=== PATIENT | female | born 1945 | race Caucasian/White ===

== ENCOUNTER 2021-01-07 16:30 | Inpatient (IN) ==
[2021-01-07] MEDS ORDERED: SODIUM CHLORIDE 0.9% 500 ML IV SCH (16:45)
--- NOTE | 2021-01-07 16:53 | Emergency Department Note ---
History of Present Illness General Chief complaint: Weakness Stated complaint: WEAKNESS, DIZZINESS, BRADYCARDIA, HYPOTENSIVE Time Seen by Provider: 01/07/21 16:36 Source: patient Mode of arrival: ambulatory Limitations: no limitations History of Present Illness Provider complaint: Weakness This is a 75-year-old female who presents to the ED with a chief complaint of generalized weakness and some nausea. She was discharged from [facility] yesterday. She was reportedly in there for hyperkalemia. The patient was seen by the home health nurse today and her heart rate was low in the 40s and her blood pressure was reportedly low as well. It was reportedly 62/33. She was brought here for evaluation. The patient states that she normally goes to [facility]. She decided to go to [place] on her last hospitalization at this time decided to come to [facility] for evaluation. She currently is not experiencing any nausea. She feels a little weak but otherwise denies any specific complaints at this time. Home Medications Medication Instructions Recorded Confirmed Type amlodipine 10 mg PO DAILY 01/07/21 01/07/21 History carvedilol 25 mg PO BIDM 01/07/21 01/07/21 History epoetin tomas-epbx [Retacrit] 10,000 unit SUBCUT .Q14 DAYS 01/07/21 01/07/21 History glimepiride 4 mg PO QAM 01/07/21 01/07/21 History sodium polystyrene sulfonate 15 g PO DAILY 01/07/21 01/07/21 History [Kayexalate] Allergies Allergy/AdvReac Type Severity Reaction Status Date / Time No Known Allergies Allergy Verified 01/07/21 17:29 Past Med/Surg History Medical History (Updated 01/07/21 @ 18:59 by Cortez Frias DO) Diabetes Hypertension Kidney disease, chronic, stage IV (GFR 15-29 ml/min) Social History Smoking Status: Never smoker Feels Safe at Home: Yes Review of Systems A total of 10 systems reviewed and were otherwise negative Physical Exam Vital Signs Vital Signs - 24 hr 01/07/21 16:35 01/07/21 16:40 01/07/21 16:47 Temperature 36.6 C Temperature Source Oral Pulse Rate 47 L 46 L 46 L Pulse Rate from SpO2 Sensor Respiratory Rate 23 13 21 Respiratory Effort / Characteristics Non-Labored Spontaneous Respiratory Depth Normal Blood Pressure 96/46 L 96/46 L Blood Pressure Mean 62 62 Blood Pressure Position Lying Pulse Oximetry 98 Oxygen Delivery Method Room Air Room Air Room Air Sepsis Recent Fever Within 48 Hours No Sepsis New/Unexplained Change in Mental Status N/A Sepsis Action Taken by Nursing No Action Required 01/07/21 16:50 01/07/21 17:00 01/07/21 17:10 Temperature Temperature Source Pulse Rate 45 L 49 L 45 L Pulse Rate from SpO2 Sensor Respiratory Rate 19 33 H 14 Respiratory Effort / Characteristics Respiratory Depth Blood Pressure Blood Pressure Mean Blood Pressure Position Pulse Oximetry Oxygen Delivery Method Room Air Room Air Room Air Sepsis Recent Fever Within 48 Hours Sepsis New/Unexplained Change in Mental Status Sepsis Action Taken by Nursing 01/07/21 17:20 01/07/21 17:30 01/07/21 17:40 Temperature Temperature Source Pulse Rate 44 L 46 L 46 L Pulse Rate from SpO2 Sensor Respiratory Rate 16 24 16 Respiratory Effort / Characteristics Respiratory Depth Blood Pressure Blood Pressure Mean Blood Pressure Position Pulse Oximetry Oxygen Delivery Method Room Air Room Air Room Air Sepsis Recent Fever Within 48 Hours Sepsis New/Unexplained Change in Mental Status Sepsis Action Taken by Nursing 01/07/21 17:50 01/07/21 18:00 01/07/21 18:10 Temperature Temperature Source Pulse Rate 44 L 45 L 45 L Pulse Rate from SpO2 Sensor 44 L Respiratory Rate 15 17 14 Respiratory Effort / Characteristics Respiratory Depth Blood Pressure Blood Pressure Mean Blood Pressure Position Pulse Oximetry 97 Oxygen Delivery Method Room Air Room Air Room Air Sepsis Recent Fever Within 48 Hours Sepsis New/Unexplained Change in Mental Status Sepsis Action Taken by Nursing 01/07/21 18:13 01/07/21 18:20 Temperature Temperature Source Pulse Rate 45 L 45 L Pulse Rate from SpO2 Sensor 45 L 45 L Respiratory Rate 13 15 Respiratory Effort / Characteristics Respiratory Depth Blood Pressure 128/58 L Blood Pressure Mean 81 Blood Pressure Position Pulse Oximetry 95 95 Oxygen Delivery Method Room Air Room Air Sepsis Recent Fever Within 48 Hours Sepsis New/Unexplained Change in Mental Status Sepsis Action Taken by Nursing CONSTITUTIONAL/VITAL SIGNS: Reviewed / noted above. GENERAL: Non-toxic in appearance. INTEGUMENTARY: Warm, dry, and [place] [employer]. HEAD: Normocephalic. EYES: without scleral icterus or trauma. ENT/OROPHARYNX: clear and moist. LYMPHADENOPATHY/NECK: Is supple without lymphadenopathy or meningismus. RESPIRATORY: Lungs clear and equal. CARDIOVASCULAR: Regular rate and rhythm. GI/ABDOMEN: Soft and nontender. No organomegaly or pulsatile mass. No rebound or guarding. Normal bowel sounds. EXTREMITIES: Warm and well perfused. BACK: No CVA tenderness. NEUROLOGICAL: Intact without focal deficits. PSYCHIATRIC: normal affect. MUSCULOSKELETAL: Normally developed with good muscle tone. TRIAGE NURSING DOCUMENTATION REVIEWED. Course Administered Medications Sodium Chloride (Nss 1000ml) 500 mls @ 999 mls/hr IV .Q31M ONE Stop: 01/07/21 19:06 Last Admin: 01/07/21 18:58 Dose: 999 mls/hr Documented by: Discontinued Medications Acetaminophen (Acetaminophen 500 Mg Tab) 500 mg PO NOW STA Stop: 01/07/21 18:44 Last Admin: 01/07/21 18:56 Dose: 500 mg Documented by: Sodium Chloride (Nss) 500 mls @ 999 mls/hr IV .Q31M BJORN Stop: 01/07/21 17:15 Last Infusion: 01/07/21 17:57 Dose: 0 mls/hr Documented by: [id number] Admin: 01/07/21 17:04 Dose: 999 mls/hr Documented by: [id number] Medical Decision Making Differential Diagnosis Differential includes acute coronary syndrome, myocardial infarction, CVA, TIA, anemia, infection, pneumonia, UTI, pyelonephritis, poor nutrition, dehydration, electrolyte disturbance,hypoglycemia. Medical Records Attestation: I reviewed the patient's medical records. Home Medications Current Medication List: was personally reviewed by me Laboratory Data Attestation: I reviewed the patient's lab results. Result diagrams: 01/07/21 17:25 01/07/21 17:25 Lab Results 01/07/21 01/07/21 01/07/21 Range/Units 17:25 17:25 17:25 WBC 5.42 (4.8-10.8) K/uL RBC 2.80 L (4.2-5.4) M/uL Hgb 8.3 L (12.0-16.0) g/dL Hct 26.4 L (37-47) % MCV 94.3 (80-100) fL MCH 29.6 (25-34) pg MCHC 31.4 L (32-36) g/dL RDW Std Deviation 53.9 H (36.4-46.3) fL RDW Coeff of Jaren 15.6 H (11.5-14.5) % Plt Count 138 (130-400) K/uL MPV 9.9 (7.4-10.4) fL Immature Gran % (Auto) 0.2 % Neut % (Auto) 63.8 % Lymph % (Auto) 27.7 % Young % (Auto) 7.2 % Eos % (Auto) 0.9 % Baso % (Auto) 0.2 % Neut # (Auto) 3.46 (1.4-6.5) K/uL Lymph # (Auto) 1.50 (1.2-3.4) K/uL Young # (Auto) 0.39 (0.11-0.59) K/uL Eos # (Auto) 0.05 (0-0.5) K/uL Baso # (Auto) 0.01 (0-0.2) K/uL Immature Gran # (Auto) 0.01 (0.00-0.02) K/uL PT 10.2 (9.0-12.0) Seconds INR 1.0 (0.9-1.1) Sodium 138 (136-145) mmol/L Potassium 4.6 (3.5-5.1) mmol/L Chloride 103 (98-107) mmol/L Carbon Dioxide 29 (21-32) mmol/L Anion Gap 6.0 (3-11) BUN 63 H (7-18) mg/dl Creatinine 3.59 H (0.6-1.2) mg/dl Est Cr Clr Drug Dosing 15.9 ml/min Est GFR ( Amer) 13.4 Est GFR (Non-Af Amer) 11.6 BUN/Creatinine Ratio 17.5 (10-20) Glucose 307 H* (70-99) mg/dl Calcium 8.7 (8.5-10.1) mg/dl Magnesium 2.6 H (1.8-2.4) mg/dl Total Bilirubin 0.7 (0.2-1) mg/dl AST 18 (15-37) U/L ALT 28 (12-78) U/L Alkaline Phosphatase 89 (45-117) U/L Total Creatine Kinase 44 (26-192) U/L Troponin I < 0.015 (0-0.045) ng/ml Total Protein 6.6 (6.4-8.2) gm/dl Albumin 3.0 L (3.4-5.0) gm/dl Globulin 3.6 (2.5-4.0) gm/dl Albumin/Globulin Ratio 0.8 L (0.9-2) Beta-Hydroxybutyric Acd 0.63 (0.2-2.81) mg/dl TSH 3.770 (0.300-4.500) uIu/ml Imaging Data Radiologist's Impression: XR chest 1V portable HISTORY: 75 years-old Female weakness acute weakness COMPARISON: None TECHNIQUE: Portable AP view of the chest FINDINGS: Cardiac silhouette is moderately enlarged. Coronary arterial stenting. Calcified plaque of the thoracic aorta. No pneumothorax, pleural effusion, airspace consolidation or overt pulmonary edema. The bones of the chest appear grossly intact. Degenerative changes of the shoulders and spine. IMPRESSION: Cardiomegaly without acute process. ECG Data Attestation: I personally reviewed and interpreted this ECG as follows: Indication: + weakness Rate (beats per minute): 44 Rhythm: + sinus bradycardia ECG Intervals/blocks: + First degree AV block ECG ST segments: no ST depression and no ST elevation ECG Findings: no PVCs MDM Narrative Patient presents with some generalized weakness nausea and also low blood pressure when checked by home health nurses. Her blood pressure was reportedly 62/33 with a heart rate of 45. She was sent here by ambulance. Review of the discharge summary suggest that she was discharged on Coreg and amlodipine for blood pressure control. Glimepiride was started for diabetes and Veltassa for hyperkalemia management. Her vital signs here did not show hypotension. She is bradycardic and a twelve-lead EKG shows a sinus bradycardia with a first-degree block of 44. No ischemic changes. The patient's blood work today shows a hemoglobin of 8.3. It was 9.85 days ago. Her BUN is 63 today and creatinine is 3.59. It was 49 and 3 2 days ago. Troponin was negative. Chest x-ray reveals cardiomegaly but no acute disease. Glucose is 307. Because the patient's overall symptoms as well as anemia and worsening kidney function, the patient will require further inpatient evaluation and care. Guaiac testing of the patient's stool was guaiac negative. The patient's niece did report that she was due for a Procrit shot today. She was given some IV fluids. Impression & Plan Generalized weakness, Anemia, Acute kidney injury superimposed on chronic kidney disease Discharge Plan Visit Data Chief Complaint: Weakness Stated Complaint: WEAKNESS, DIZZINESS, BRADYCARDIA, HYPOTENSIVE ED Provider: Cortez Frias Discharge Problem: Generalized weakness, Anemia, Acute kidney injury superimposed on chronic kid maxine disease Patient Disposition: Being Evaluated by Hospitalist Forms Stand Alone Forms: My [facility] Prescriptions Prescriptions: No Action carvedilol 25 mg Tablet 25 mg PO BIDM RF: 0 amlodipine 10 mg Tablet 10 mg PO DAILY RF: 0 glimepiride 4 mg Tablet 4 mg PO QAM RF: 0 sodium polystyrene sulfonate [Kayexalate] Powder 15 g PO DAILY RF: 0 Retacrit 10,000 unit/mL Solution 10,000 unit subcut .Q14 DAYS RF: 0 Referrals Referrals: PCP,NO [Primary Care Provider] -
--- NOTE | 2021-01-07 17:20 | XRay Report ---
XR chest 1V portable HISTORY: 75 years-old Female weakness acute weakness COMPARISON: None TECHNIQUE: Portable AP view of the chest FINDINGS: Cardiac silhouette is moderately enlarged. Coronary arterial stenting. Calcified plaque of the thorac ic aorta. No pneumothorax, pleural effusion, airspace consolidation or overt pulmonary edema. The bon es of the chest appear grossly intact. Degenerative changes of the shoulders and spine. IMPRESSION: Cardiomegaly without acute process. ACT 112: Negative or not required by law. The above report was generated using voice recognition software. It may contain grammatical, syntax o r spelling errors. Electronically signed by: Gamal Moon M.D. 01/07/2021 5:19 PM
[2021-01-07 17:37] LABS: Basophils # (auto) 0.01 K/uL (0-0.2); Basophils % (auto) 0.2 %; Eosinophils # (auto) 0.05 K/uL (0-0.5); Eosinophils % (auto) 0.9 %; Hematocrit (blood only) 26.4 % (37-47); Hemoglobin 8.3 g/dL (12.0-16.0); Immature Granulocytes # (auto) 0.01 K/uL (0.00-0.02); Immature Granulocytes % (auto) 0.2 %; Lymphocytes % (auto) 27.7 %; Mean Corpuscular Hemoglobin 29.6 pg (25-34); Mean Corpuscular Hgb Conc 31.4 g/dL (32-36); Mean Corpuscular Volume 94.3 fL (80-100); Mean Platelet Volume 9.9 fL (7.4-10.4); Monocytes # (auto) 0.39 K/uL (0.11-0.59); Monocytes % (auto) 7.2 %; Neutrophils # (auto) 3.46 K/uL (1.4-6.5); Neutrophils % (auto) 63.8 %; Platelet Count 138 K/uL (130-400); RDW Coefficient of Variation 15.6 % (11.5-14.5); RDW Standard Deviation 53.9 fL (36.4-46.3); White Blood Count 5.42 K/uL (4.8-10.8)
[2021-01-07 17:50] LABS: Prothrombin Time 10.2 Seconds (9.0-12.0)
[2021-01-07 18:08] LABS: Alanine Aminotransferase 28 U/L (12-78); Albumin Globulin Ratio 0.8 (0.9-2); Alkaline Phosphatase 89 U/L (45-117); Aspartate Aminotransferase 18 U/L (15-37); BUN Creatinine Ratio 17.5 (10-20); Bilirubin,Total 0.7 mg/dl (0.2-1); Blood Urea Nitrogen 63 mg/dl (7-18); Calcium 8.7 mg/dl (8.5-10.1); Carbon Dioxide 29 mmol/L (21-32); Chloride 103 mmol/L (98-107); Creatine Kinase 44 U/L (26-192); Creatinine Clr Calc Pharmacy 15.9 ml/min; Est GFR (African American) 13.4; Est GFR (Non-African American) 11.6; Globulin 3.6 gm/dl (2.5-4.0); Glucose 307 mg/dl (70-99); Magnesium 2.6 mg/dl (1.8-2.4); Potassium 4.6 mmol/L (3.5-5.1); Sodium 138 mmol/L (136-145); Total Protein 6.6 gm/dl (6.4-8.2); Troponin I < 0.015 ng/ml (0-0.045)
[2021-01-07] MEDS ORDERED: SODIUM CHLORIDE 0.9% 1000ML 500 ML IV ONE (18:36)
[2021-01-07 18:41] LABS: Beta-Hydroxybutyrate 0.63 mg/dl (0.2-2.81)
[2021-01-07] MEDS ORDERED: ACETAMINOPHEN 500 MG TAB PO STA (18:43)
[2021-01-07] MEDS ORDERED: INSULIN GLARGINE SOLOSTAR 100 UNITS/ML 3 ML PEN SC STA (19:54)
--- NOTE | 2021-01-07 20:23 | History & Physical Report ---
Date of Service January 07, 2021 Assessment & Plan (1) Hypotension: (2) Bradycardia: (3) Acute kidney injury superimposed on chronic kidney disease: This is a 75-year-old female who has significant past medical history of uncontrolled T2DM, CAD, HTN, HLD, hyperparathyroidism, CKD stage IV, PVD, GERD, exudative age-related macular degeneration, anemia of chronic disease, depression, thrombocytopenia, gait abnormality who presents to ED at the referral of home health nurse secondary to hypotension and bradycardia. Pt discharged [facility] from [facility] 12[facility]01 to a/c CKD, hypertension, hyperkalemia and halluciations. Med adjustments included d/c GALINDO and initiated on amlodipine and Coreg. Creatinine at discharge 3.0. Baseline creatinine ~ 2.4. HPI, PMSFH and physical exam obtained by myself. Please see Dr. Riddle Addendum for assessment and plan. (4) T2DM (type 2 diabetes mellitus): (5) CAD (coronary artery disease): (6) Hypertension: (7) Generalized weakness: (8) Anemia: (9) Plantar ulcer of right foot: (10) DVT prophylaxis: History of Present Illness Chief Complaint: Referred by home health due to hypotension and bradycardia. Primary Care Provider: Corry Vincent MD This is a 75-year-old female who has significant past medical history of uncontrolled T2DM, CAD, HTN, HLD, hyperparathyroidism, CKD stage IV, PVD, GERD, exudative age-related macular degeneration, anemia of chronic disease, depression, thrombocytopenia, gait abnormality who presents to ED at the referral of home health nurse secondary to hypotension and bradycardia. Of significance patient was recently hospitalized at [facility] secondary to acute on chronic CKD, hyperkalemia, auditory and visual hallucinations and hypertension. She was then transition to swing bed for PT OT and was discharged to home yesterday. She had been set up with [facility]. During her hospital stay she did have adjustments to blood pressure medications including discontinuation of lisinopril and the addition of amlodipine and Coreg. Her renal function on discharge was 3.0. At home today when being visited by home health nurse she was found to be lightheaded and dizzy with ambulation as long as weak. She was hypotensive and bradycardic and therefore referred to ED. Per ED physician BP at home was reportedly 62/33. In ED she had 1 L of IV fluid administered. Heart rates were in the mid 40s with sinus bradycardia and first-degree AV block. Blood pressure upon my evaluation was 115/44. Currently she feels much improved when is lying in bed. She denies any current lightheadedness, dizziness, fever, chills, sweats, chest pain, shortness of breath, nausea, vomiting, diarrhea, change in her bowel or urinary habits. Allergies Allergy/AdvReac Type Severity Reaction Status Date / Time No Known Allergies Allergy Verified 01/07/21 17:29 Home Medications Medication Instructions Recorded Confirmed Type amlodipine 10 mg PO DAILY 01/07/21 01/07/21 History aspirin [Aspir-81] 81 mg PO DAILY 01/07/21 01/07/21 History atorvastatin 80 mg PO DAILY 01/07/21 01/07/21 History brimonidine-dorzolamide (PF) 1 drp OPHTHALMIC (EYE) BID 01/07/21 01/07/21 History carvedilol 25 mg PO BIDM 01/07/21 01/07/21 History cholecalciferol (vitamin D3) 25 mcg PO DAILY 01/07/21 01/07/21 History citalopram 20 mg PO DAILY 01/07/21 01/07/21 History clopidogrel 75 mg PO DAILY 01/07/21 01/07/21 History epoetin tomas-epbx [Retacrit] 10,000 unit SUBCUT .Q14 DAYS 01/07/21 01/07/21 History famotidine 20 mg PO HS 01/07/21 01/07/21 History ferrous sulfate [FeroSul] 325 mg PO DAILY@1200 01/07/21 01/07/21 History folic acid 1 mg PO DAILY 01/07/21 01/07/21 History furosemide 40 mg PO DAILY 01/07/21 01/07/21 History glimepiride 4 mg PO QAM 01/07/21 01/07/21 History polyethylene glycol 3350 17 g PO DAILY 01/07/21 01/07/21 History prednisolone acetate 1 drp OPL BID 01/07/21 01/07/21 History sodium polystyrene sulfonate 15 g PO DAILY 01/07/21 01/07/21 History [Kayexalate] travoprost [Travatan Z] 1 drp OPR PM 01/07/21 01/07/21 History Past Med/Surg History Medical History CAD (coronary artery disease) Depression 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 GERD (gastroesophageal reflux disease) HLD (hyperlipidemia) Hyperparathyroidism Hypertension Kidney disease, chronic, stage IV (GFR 15-29 ml/min) PVD (peripheral vascular disease) T2DM (type 2 diabetes mellitus) Surgical History History of cataract extraction History of tonsillectomy History of total hysterectomy with bilateral salpingo-oophorectomy (BSO) Family History Mother Breast cancer Sister Cancer Father Diabetes Social History Smoking Status: Never smoker Hx Alcohol Use: No Hx Substance Use: No Preferred Language: Cuban marital status: / Feels Safe at Home: Yes Review of Systems Review of Systems: All systems reviewed & are unremarkable except as noted in HPI & below Physical Exam Physical Exam: Constitutional: WD/WN, chronically ill-appearing female, pale, vitals as above, NAD, lying in bed, pleasant, conversing easily Head: Normocephalic, Atraumatic Eyes: PERRL, conjunctivae normal, anicteric sclerae ENMT: external ear and nose normal, oropharynx normal Neck: trachea midline, no thyromegaly normal visual inspection Respiratory: normal respiratory effort, lungs clear to auscultation, no wheeze, rales, rhonchi. Normal insp/exp effort, no accessory muscle use Cardiovascular: Bradycardic rate, regular rhythm, no murmur, bilateral venous stasis changes, no edema Vessels: no JVD or carotid bruit Chest: normal inspection of chest Abdomen: normal bowel sounds, soft, nontender, no hepatosplenomegaly Musculoskeletal: no cyanosis or clubbing, extremities motor strength 5/5 Skin: no rashes, warm and dry normal turgor, plantar ulcer to base of right great toe with with thickened crust, no surrounding erythema Neurologic: PERRL, EOMI, accommodation nl, no face palsy, no dysarthria CN's II-XI intact bilaterally and moves all extremities Psychiatric: A+Ox3, euthymic affect Lymphatic: no cervical or axillary lymphadenopathy : deferred Results & Data Results & Data ([facility]) Vital Signs (Past 12 Hours) Vital Signs Temp Pulse Resp BP Pulse Ox 01/07/21 19:00 48 L 19 99 01/07/21 18:50 44 L 13 97 01/07/21 18:40 46 L 14 99 01/07/21 18:30 47 L 20 118/60 99 01/07/21 18:20 45 L 15 95 01/07/21 18:13 45 L 13 128/58 L 95 01/07/21 18:10 45 L 14 97 01/07/21 18:00 45 L 17 01/07/21 17:50 44 L 15 01/07/21 17:40 46 L 16 01/07/21 17:30 46 L 24 01/07/21 17:20 44 L 16 01/07/21 17:10 45 L 14 01/07/21 17:00 49 L 33 H 01/07/21 16:50 45 L 19 01/07/21 16:47 46 L 21 01/07/21 16:40 36.6 C 46 L 13 96/46 L 98 01/07/21 16:35 47 L 23 96/46 L Diagnostic Findings CXR: IMPRESSION: Cardiomegaly without acute process. Medications Administered Discontinued Medications Acetaminophen (Acetaminophen 500 Mg Tab) 500 mg PO NOW STA Stop: 01/07/21 18:44 Last Admin: 01/07/21 18:56 Dose: 500 mg Documented by: [id number] Sodium Chloride (Nss) 500 mls @ 999 mls/hr IV .Q31M BJORN Stop: 01/07/21 17:15 Last Infusion: 01/07/21 17:57 Dose: 0 mls/hr Documented by: [id number] Admin: 01/07/21 17:04 Dose: 999 mls/hr Documented by: [id number] Sodium Chloride (Nss 1000ml) 500 mls @ 999 mls/hr IV .Q31M ONE Stop: 01/07/21 19:06 Last Infusion: 01/07/21 19:43 Dose: 0 mls/hr Documented by: [id number] Admin: 01/07/21 18:58 Dose: 999 mls/hr Documented by: [id number] ECG Rate (beats per minute): 44 Rhythm: sinus bradycardia Findings: + 1st degree AV block COVID-19 Results Results COVID-19 Adm Lab Results: RBC 2.80 M/uL (4.2-5.4) L 01/07/21 WBC 5.42 K/uL (4.8-10.8) 01/07/21 Hgb 8.3 g/dL (12.0-16.0) L 01/07/21 Hct 26.4 % (37-47) L 01/07/21 Plt Count 138 K/uL (130-400) 01/07/21 Neutrophils (%) (Auto) 63.8 % 01/07/21 Lymphocytes (%) (Auto) 27.7 % 01/07/21 Monocytes # (Auto) 0.39 K/uL (0.11-0.59) 01/07/21 Eosinophils # (Auto) 0.05 K/uL (0-0.5) 01/07/21 Immature Granulocyte % (Auto) 0.2 % 01/07/21 Neutrophils # (Auto) 3.46 K/uL (1.4-6.5) 01/07/21 Lymphocytes # (Auto) 1.50 K/uL (1.2-3.4) 01/07/21 Monocytes # (Auto) 0.39 K/uL (0.11-0.59) 01/07/21 Eosinophils # (Auto) 0.05 K/uL (0-0.5) 01/07/21 Basophils # (Auto) 0.01 K/uL (0-0.2) 01/07/21 Immature Granulocyte # (Auto) 0.01 K/uL (0.00-0.02) 01/07/21 Na 138 mmol/L (136-145) 01/07/21 K 4.6 mmol/L (3.5-5.1) 01/07/21 Cl 103 mmol/L (98-107) 01/07/21 CO2 29 mmol/L (21-32) 01/07/21 Anion Gap 6.0 (3-11) 01/07/21 BUN 63 mg/dl (7-18) H 01/07/21 Creatinine 3.59 mg/dl (0.6-1.2) H 01/07/21 BUN/Creatinine Ratio 17.5 (10-20) 01/07/21 Glucose Level 307 mg/dl (70-99) H* 01/07/21 Ca 8.7 mg/dl (8.5-10.1) 01/07/21 Total Bilirubin 0.7 mg/dl (0.2-1) 01/07/21 AST/SGOT 18 U/L (15-37) 01/07/21 ALT/SGPT 28 U/L (12-78) 01/07/21 Alkaline Phosphatase 89 U/L (45-117) 01/07/21 Total Protein 6.6 gm/dl (6.4-8.2) 01/07/21 Albumin 3.0 gm/dl (3.4-5.0) L 01/07/21 Globulin 3.6 gm/dl (2.5-4.0) 01/07/21 Albumin/Globulin Ratio 0.8 (0.9-2) L 01/07/21 Total CK 44 U/L (26-192) 01/07/21 Troponin I < 0.015 ng/ml (0-0.045) 01/07/21 INR 1.0 (0.9-1.1) 01/07/21 SARS-CoV-2, RNA, NAAT NEGATIVE (NEGATIVE) 01/07/21 Chest X-Ray 01/07/21 Code Status & VTE Plan Code Status Full Code VTE Prophylaxis Plan VTE Prophylaxis will be ordered: Yes
[2021-01-07] MEDS ORDERED: SODIUM CHLORIDE 0.9% 1000ML 1,000 ML IV ONE (20:48)
[2021-01-07] MEDS ORDERED: CARBOHYDRATES FOR HYPOGLYCEMIA PO PRN (23:20)
[2021-01-07] MEDS ORDERED: PROMETHAZINE HCL 12.5 MG in SODIUM CHLORIDE 0.9% 50 ML IV PRN (23:20)
[2021-01-07] MEDS ORDERED: DEXTROSE 50% 50 ML SYRINGE IV PRN (23:20)
[2021-01-07] MEDS ORDERED: ACETAMINOPHEN 325 MG TAB PO PRN (23:20)
[2021-01-07] MEDS ORDERED: ATROPINE SULFATE 0.1 MG/ML 5ML SYR IV PRN (23:20)
[2021-01-07] MEDS ORDERED: GLUCAGON FOR INJ 1 MG VIAL SQ PRN (23:20)
[2021-01-07] MEDS ORDERED: GLUCOSE 40% GEL 15 GM TUBE PO PRN (23:20)
[2021-01-07] MEDS ORDERED: traMADol HCL 50 MG TABLET PO PRN (23:20)
[2021-01-07] MEDS ORDERED: GLUCOSE 10 TABS/TUBE PO PRN (23:20)
[2021-01-07] MEDS: TRAVOPROST Z 0.004% OPH SOLN 2.5 ML BTL OPR SCH (23:53)
[2021-01-07] MEDS: FAMOTIDINE 20 MG TAB PO SCH (23:54)
[2021-01-07] MEDS: prednisoLONE acetate 1% OP SUSP 5 ML BTL OP SCH (23:54)
[2021-01-07] MEDS: INSULIN ASPART 100 UNITS/ML 3 ML PEN SC SCH (23:55)
[2021-01-08 00:31] LABS: BUN Creatinine Ratio 18.8 (10-20); Calcium 8.4 mg/dl (8.5-10.1); Creatinine Clr Calc Pharmacy 16.2 ml/min; Est GFR (African American) 13.9; Potassium 4.1 mmol/L (3.5-5.1)
[2021-01-08 04:58] LABS: Appearance Urine Clear (Clear); Bilirubin Urine Negative (Negative); Blood Urine Negative (Negative); Color Urine Yellow; Glucose Urine UA Negative (Negative); Ketones Urine Negative (Negative); Leukocyte Esterase Urine Negative (Negative); Nitrite Urine Negative (Negative); Protein Urine Negative (Negative); Specific Gravity Urine 1.018 (1.000-1.030); Urobilinogen Urine Negative (Negative)
[2021-01-08 06:32] LABS: Basophils # (auto) 0.01 K/uL (0-0.2); Basophils % (auto) 0.2 %; Eosinophils # (auto) 0.07 K/uL (0-0.5); Eosinophils % (auto) 1.3 %; Hematocrit (blood only) 25.6 % (37-47); Hemoglobin 8.1 g/dL (12.0-16.0); Lymphocytes # (auto) 1.39 K/uL (1.2-3.4); Lymphocytes % (auto) 25.7 %; Mean Corpuscular Hemoglobin 29.8 pg (25-34); Mean Corpuscular Hgb Conc 31.6 g/dL (32-36); Mean Corpuscular Volume 94.1 fL (80-100); Mean Platelet Volume 10.1 fL (7.4-10.4); Monocytes # (auto) 0.47 K/uL (0.11-0.59); Monocytes % (auto) 8.7 %; Neutrophils # (auto) 3.47 K/uL (1.4-6.5); Neutrophils % (auto) 64.1 %; Platelet Count 114 K/uL (130-400); RDW Coefficient of Variation 15.6 % (11.5-14.5); Red Blood Count 2.72 M/uL (4.2-5.4); White Blood Count 5.41 K/uL (4.8-10.8)
[2021-01-08 06:58] LABS: BUN Creatinine Ratio 18.7 (10-20); Calcium 8.6 mg/dl (8.5-10.1); Creatinine Clr Calc Pharmacy 16.1 ml/min; Est GFR (African American) 13.7; Est GFR (Non-African American) 11.9; Potassium 4.3 mmol/L (3.5-5.1)
[2021-01-08] MEDS: TRAVOPROST Z 0.004% OPH SOLN 2.5 ML BTL OPR SCH (07:39)
[2021-01-08] MEDS: CLOPIDOGREL BISULFATE 75 MG TAB PO SCH (07:40)
[2021-01-08] MEDS: CITALOPRAM 20 MG TAB PO SCH (07:40)
[2021-01-08] MEDS: FOLIC ACID 1 MG TAB PO SCH (07:40)
[2021-01-08] MEDS: ATORVASTATIN 40 MG TAB PO SCH (07:41)
[2021-01-08] MEDS: FERROUS SULFATE 325 MG TAB PO SCH (07:41)
[2021-01-08] MEDS: ASPIRIN 81 MG ECTAB PO SCH (07:42)
[2021-01-08] MEDS: prednisoLONE acetate 1% OP SUSP 5 ML BTL OP SCH ×2 (07:42→20:39)
[2021-01-08] MEDS: INSULIN ASPART 100 UNITS/ML 3 ML PEN SC SCH ×4 (07:59→20:38)
--- NOTE | 2021-01-08 08:09 | Nephrology Consultation ---
Date of Consultation January 08, 2021 Assessment & Plan (1) Acute kidney injury superimposed on chronic kidney disease: presenting creatinine 01/07 3.6, up from her baseline of 2. kayexalate was continued on presentation. suspect ischemic atn from lower bp/bradycardia. >>low threshold to evaluate for sleep apnea/ low threshold for abg given tendency to dose off >> pt w/ ongong MS issues past several weeks -- ?dementia?delirium; ? if othe rwork up needed -stopped kayexalate -ordered low K diet for now -daily bmp Present on Admission?: Yes (2) Bradycardia: ongoing; hypotension improving though Present on Admission?: Yes (3) Anemia: follows w/ anemia clinic as OP; hgb runnign low 8's >> trend daily cbc, monitor for bleeding -will check iron stores fo fitz Present on Admission?: Yes (4) Hypertension: SBP high now>> stopped NS; some lability on presentation Present on Admission?: Yes History of Present Illness Reason for Consultation: acute on chronic renal failure Requesting Physician: Dr Li Attending Physician: Jillian Fofana, DO History of Present Illness 75 y/o F whom I'm asked to see for MARGARETH on CKD after she was admitted yesterday for hypotension attributed to bradycardia after she was recently started on coreg. PMH includes CKD 4 w/ a baseline creatinine of about 2 in early 2020, CAD s/p stent, class 3 obesity, DM longstanding w/ poor control (last A1c 9.5%) and retinopathy, PVD, R toe ulcer and recent osteomyelitis, by report progressive dementia, recurrent UTI, chronic thrombocytopenia. Many active health issues recently: admitted to [facility] for encephalopathy attributed to HTN and hyperkalemia w/ worsening renal function; also in process of transitioning to assisted living in [facility]. Her HR has been in the 40s since admission; sbp was in 90s on presentation but improved to 120-130s this am and 170s by early afternoon. Her presenting creatinine was 3.6, down to 3.5 this am. ROS is limited by fatigue/ MS-- she denies pain or sob or edema. Allergies Allergy/AdvReac Type Severity Reaction Status Date / Time No Known Allergies Allergy Verified 01/07/21 17:29 Home Medications Medication Instructions Recorded Confirmed Type amlodipine 10 mg PO DAILY 01/07/21 01/07/21 History aspirin [Aspir-81] 81 mg PO DAILY 01/07/21 01/07/21 History atorvastatin 80 mg PO DAILY 01/07/21 01/07/21 History brimonidine-dorzolamide (PF) 1 drp OPHTHALMIC (EYE) BID 01/07/21 01/07/21 Histor y carvedilol 25 mg PO BIDM 01/07/21 01/07/21 History cholecalciferol (vitamin D3) 25 mcg PO DAILY 01/07/21 01/07/21 History citalopram 20 mg PO DAILY 01/07/21 01/07/21 History clopidogrel 75 mg PO DAILY 01/07/21 01/07/21 History epoetin tomas-epbx [Retacrit] 10,000 unit SUBCUT .Q14 DAYS 01/07/21 01/07/21 History famotidine 20 mg PO HS 01/07/21 01/07/21 History ferrous sulfate [FeroSul] 325 mg PO DAILY@1200 01/07/21 01/07/21 History folic acid 1 mg PO DAILY 01/07/21 01/07/21 History furosemide 40 mg PO DAILY 01/07/21 01/07/21 History glimepiride 4 mg PO QAM 01/07/21 01/07/21 History polyethylene glycol 3350 17 g PO DAILY 01/07/21 01/07/21 History prednisolone acetate 1 drp OPL BID 01/07/21 01/07/21 History sodium polystyrene sulfonate 15 g PO DAILY 01/07/21 01/07/21 History [Kayexalate] travoprost [Travatan Z] 1 drp OPR PM 01/07/21 01/07/21 History Patient History Medical History CAD (coronary artery disease) Depression 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 GERD (gastroesophageal reflux disease) HLD (hyperlipidemia) Hyperparathyroidism Hypertension Kidney disease, chronic, stage IV (GFR 15-29 ml/min) PVD (peripheral vascular disease) T2DM (type 2 diabetes mellitus) Surgical History History of cataract extraction History of tonsillectomy History of total hysterectomy with bilateral salpingo-oophorectomy (BSO) Family History Mother Breast cancer Sister Cancer Father Diabetes Social History Smoking Status: Never smoker Hx Alcohol Use: No Hx Substance Use: No Preferred Language: Russian Communication Ability: Effective Bull Driver Required: No Beliefs That Will Affect Care: None marital status: / Current Living Situation: Family Current Living Situation Comment: Lives with son Other Information That Helps Us Care for You: No Feels Safe at Home: Yes Safety Concerns: Feels Safe At This Time Assistive Devices: None Review of Systems Review of Systems: limited by mental staus adn as above Physical Exam Constitutional: well developed, well nourished and + morbidly obese; no acute distress on RA, dosing off and on in exam Eyes: EOM intact bilaterally ENMT: Ears: no external ear abnormality Nose: no external nose abnormality Mouth: + dry oral mucous membranes Neck: no nuchal rigidity Respiratory: normal respiratory effort Auscultation: + diminished lung sounds (clear best I can tell) Cardiovascular: Rate/Rhythm: regular rate and regular rhythm Extremities: no edema Gastrointestinal (Abdomen): Inspection/Auscultation: normal bowel sounds Percussion/Palpation: abdomen soft; abdomen nontender and no guarding Musculoskeletal: Extremities: normal strength Skin: no rashes, warm and dry Neurologic: no tremor, limited speech -answers mostly in monosyllables, dosing off often in exam Genitourinary: harvey w/ mample urine Results & Data ([facility]) Vital Signs (Past 12 Hours) Vital Signs Temp Pulse Pulse Resp BP BP Pulse Ox 01/08/21 04:30 36.4 C L 43 L 18 114/65 92 01/07/21 22:20 36.4 C L 46 L 18 119/53 L 99 01/07/21 21:50 45 L 18 01/07/21 21:40 48 L 23 01/07/21 21:31 49 L 12 117/49 L 01/07/21 21:30 48 L 17 01/07/21 21:20 44 L 15 01/07/21 21:10 42 L 16 01/07/21 21:00 44 L 15 100/45 L 01/07/21 20:50 44 L 12 01/07/21 20:40 45 L 18 01/07/21 20:30 47 L 15 108/52 L 01/07/21 20:20 45 L 14 01/07/21 20:11 63 20 115/44 L 01/07/21 20:10 47 L 12 Laboratory Results 01/08/21 05:54 01/08/21 05:54 UA 1018, clear yellow, pH 5; al indices neg; no micro Diagnostic Findings renal u/s 1. No evidence of hydronephrosis 2. Bilateral renal cysts 3. Increased renal cortical echogenicity and renal cortical thinning. The findings are consistent with medical renal disease cxr> cardiomegaly w/o acute process (1) Anemia Anemia type: unspecified type Qualified Code(s): D64.9 - Anemia, unspecified
[2021-01-08] MEDS ORDERED: SODIUM POLYSTYRENE SULFONATE 15G/60ML SUSP PO SCH (09:00)
[2021-01-08] MEDS ORDERED: INSULIN GLARGINE SOLOSTAR 100 UNITS/ML 3 ML PEN SC SCH (09:00)
--- NOTE | 2021-01-08 09:28 | Ultrasound Report ---
EXAMINATION: RENAL ULTRASOUND CLINICAL HISTORY: renal failure COMPARISON STUDY: FINDINGS: The right kidney measures 10.4 cm. The left kidney measures 9.3 cm. There is no evidence o f hydronephrosis. The kidneys appear increased echogenicity. There is mild renal cortical thinning. There is a 3 cm lower pole right renal cyst. There is a 27 mm left renal cyst. The bladder was nonvisualized. The patient had an indwelling Marcano catheter at the time of scanning IMPRESSION : 1. No evidence of hydronephrosis 2. Bilateral renal cysts 3. Increased renal cortical echogenicity and renal cortical thinning. The findings are consistent wit h medical renal disease ACT 112: Negative or not required by law. Electronically signed by: Zak Castano M.D. 01/08/2021 9:27 AM
--- NOTE | 2021-01-08 13:33 | Electrocardiogram Report ---
Test Reason : Blood Pressure : / mmHG Vent. Rate : 044 BPM Atrial Rate : 044 BPM P-R Int : 228 ms QRS Dur : 094 ms QT Int : 542 ms P-R-T Axes : 080 045 079 degrees QTc Int : 463 ms Poor data quality, interpretation may be adversely affected Marked sinus bradycardia with 1st degree A-V block Low voltage QRS Abnormal ECG No previous ECGs available Confirmed by Josef Herman ([id number]) on 01/08/2021 1:32:35 PM Referred By: REFERRED SELF Confirmed By:Josef Herman
--- NOTE | 2021-01-08 15:06 | Hospitalist Progress Note ---
Date of Service January 08, 2021 Assessment & Plan (1) Hypotension: Improved off Coreg, amlodipine and lasix. Cont to hold and monitor for now. (2) Bradycardia: HR was in the 40s, now improved to 50-60s on telemetry off coreg. (3) Acute kidney injury superimposed on chronic kidney disease: Nephro consulted, reassess BMP after IVF and holding Lasix for 24 hours. (4) T2DM (type 2 diabetes mellitus): Tightening basal bolus insulin to achieve euglycemia. Repeat A1C in am. Appears to be complicated by peripheral neuropathy. (5) CAD (coronary artery disease): chronic, stable, no chest pain. Cont medical management including ASA, Placix, , Lipitor 80mg daily. BB held in setting of bradycardia as above. (6) Generalized weakness: PT/OT to assess. Likely related to recent hospitalizations and deconditioning related to these. (7) Anemia: chronic, per nephro (8) Plantar ulcer of right foot: Orthotics ordered and wound care cleaned out the wound, cont local wound care and follow with outpatient dental director. (9) DVT prophylaxis: adding heparin Full Code Dispo-uncertain at this time. Jillian Fofana DO [facility] and [facility]ticipated Discharge Date Admission Date: January 07, 2021 Subjective 75 yo F presented after home health nursing found her to be hypotensive and bradycardic at home. She reports not remembering why she was recently admitted to the outside hospital, but does remember a fall recently. She doesn't know what medications were recently changed. She reports dizziness yesterday, which has resolved today She denies any nausea today and is tolerating solid food without issue. Review of Systems Review of Systems: All systems reviewed & are unremarkable except as noted in Subjective Physical Exam Physical Exam: CONSTITUTIONAL: obese, vitals as above, generally well- appearing EYES: normal conjunctivae, no scleral icterus ENT: external ear and nose normal, oropharynx clear,MMM RESPIRATORY: clear to auscultation bilaterally, no crackles, rales or wheezes, normal respiratory effort CARDIOVASCULAR: regular rate and rhythm, S1 and 2 heard without murmurs, gallops or rubs, no JVD, no peripheral edema GASTROINTESTINAL: soft, nontender, nondistended. MUSCULOSKELETAL: strength 5/5 throughout, head is normocephalic and atraumatic SKIN: warm and dry, ecchymosis on left side of body both in lateral side of chest and on lateral left buttock NEUROLOGIC: CN 2-12 grossly intact, no sensory deficit, normal cognition, normal speech, no gross focal deficits. PSYCHIATRIC: alert cooperative and oriented to person, place and time. Results & Data Results & Data ([facility]) Vital Signs (Past 12 Hours) Vital Signs Temp Pulse Pulse Resp BP Pulse Ox 01/08/21 11:53 36.6 C 65 20 171/73 H 95 01/08/21 08:00 45 L 01/08/21 07:59 36.4 C L 53 L 18 136/69 96 01/08/21 04:30 36.4 C L 43 L 18 114/65 92 Laboratory Results Short CBC 01/07/21 01/08/21 Range/Units 17:25 05:54 WBC 5.42 5.41 (4.8-10.8) K/uL Hgb 8.3 L 8.1 L (12.0-16.0) g/dL Hct 26.4 L 25.6 L (37-47) % Plt Count 138 114 L (130-400) K/uL BMP 01/07/21 01/07/21 01/08/21 17:25 23:43 05:54 Sodium 138 140 140 Potassium 4.6 4.1 4.3 Chloride 103 105 106 Carbon Dioxide 29 30 30 BUN 63 H 66 H 66 H Creatinine 3.59 H 3.48 H 3.52 H Glucose 307 H* 209 H 209 H Calcium 8.7 8.4 L 8.6 Cardiac Enzymes 01/07/21 Range/Units 17:25 Total Creatine Kinase 44 (26-192) U/L Troponin I < 0.015 (0-0.045) ng/ml Liver Function 01/07/21 Range/Units 17:25 Total Bilirubin 0.7 (0.2-1) mg/dl AST 18 (15-37) U/L ALT 28 (12-78) U/L Alkaline Phosphatase 89 (45-117) U/L Albumin 3.0 L (3.4-5.0) gm/dl Urine 01/08/21 Range/Units 04:22 Urine Color Yellow Urine Appearance Clear (Clear) Urine pH 5.0 (4.5-7.5) Ur Specific Niland 1.018 (1.000-1.030) Urine Protein Negative (Negative) Urine Glucose (UA) Negative (Negative) Medications Administered Current Inpatient Medications Acetaminophen (Acetaminophen 325 Mg Tab) 650 mg PO Q4H PRN PRN Reason: Pain or Fever Stop: 02/06/21 23:19 Aspirin (Aspirin 81 Mg Ectab) 81 mg PO DAILY [facility] Stop: 02/07/21 08:59 Last Admin: 01/08/21 07:42 Dose: 81 mg Documented by: Atorvastatin Calcium (Atorvastatin 40 Mg Tab) 80 mg PO DAILY [facility] Stop: 02/07/21 08:59 Last Admin: 01/08/21 07:41 Dose: 80 mg Documented by: Atropine Sulfate (Atropine Sulfate 0.1 Mg/Ml 5ml Syr) 0.5 mg IV Q3M PRN PRN Reason: symptomatic bradycardia Stop: 02/06/21 23:19 Citalopram Hydrobromide (Citalopram 20 Mg Tab) 20 mg PO DAILY [facility] Stop: 02/07/21 08:59 Last Admin: 01/08/21 07:40 Dose: 20 mg Documented by: Clopidogrel Bisulfate (Clopidogrel Bisulfate 75 Mg Tab) 75 mg PO DAILY [facility] Stop: 02/07/21 08:59 Last Admin: 01/08/21 07:40 Dose: 75 mg Documented by: Dextrose (Dextrose 50% 50 Ml Syringe) 25 - 50 ml IV UD PRN; Protocol PRN Reason: Hypoglycemia Protocol Stop: 02/06/21 23:19 Famotidine (Famotidine 20 Mg Tab) 20 mg PO HS [facility] Stop: 02/06/21 23:19 Last Admin: 01/07/21 23:54 Dose: 20 mg Documented by: Ferrous Sulfate (Ferrous Sulfate 325 Mg Tab) 325 mg PO DAILY@1200 [facility] Stop: 02/07/21 11:59 Last Admin: 01/08/21 07:41 Dose: 325 mg Documented by: Folic Acid (Folic Acid 1 Mg Tab) 1 mg PO DAILY [facility] Stop: 02/07/21 08:59 Last Admin: 01/08/21 07:40 Dose: 1 mg Documented by: Glucagon (Glucagon For Inj 1 Mg Vial) 1 mg SQ UD PRN; Protocol PRN Reason: Hypoglycemia Protocol Stop: 02/06/21 23:19 Glucose (Glucose 10 Tabs/Tube) 4 - 8 tabs PO UD PRN; Protocol PRN Reason: Hypoglycemia Protocol Stop: 02/06/21 23:19 Glucose (Glucose 40% Gel 15 Gm Tube) 15 - 30 gm PO UD PRN; Protocol PRN Reason: Hypoglycemia Protocol Stop: 02/06/21 23:19 Promethazine HCl 12.5 mg/ (Sodium Chloride) 50.5 mls @ 202 mls/hr IV Q6H PRN PRN Reason: Nausea And Vomiting Stop: 02/06/21 23:19 Sodium Chloride (Nss 1000ml) 1,000 mls @ 75 mls/hr IV .[id number] [facility] Stop: 01/09/21 09:59 Insulin Aspart (Insulin Aspart 100 Units/Ml 3 Ml Pen) 0 units SC ACHS [facility] Stop: 02/06/21 23:19 Last Admin: 01/08/21 11:57 Dose: 5 units Documented by: Insulin Glargine (Insulin Glargine Solostar 100 Units/Ml 3 Ml Pen) 15 units SC BID [facility] Stop: 02/07/21 20:59 Miscellaneous (Brimonidine-Dorzolamide~Order Awaiting Action) 1 ea N/A QS [facility] Stop: 02/06/21 00:00 Last Admin: 01/08/21 11:55 Dose: Not Given Documented by: Miscellaneous (Carbohydrates For Hypoglycemia ) 15 - 30 gm PO UD PRN PRN Reason: Hypoglycemia Protocol Stop: 02/06/21 23:19 Prednisolone Acetate (Prednisolone Acetate 1% Op Susp 5 Ml Btl) 1 drops OP BID [facility] Stop: 02/06/21 23:19 Last Admin: 01/08/21 07:42 Dose: 75 drops Documented by: Tramadol HCl (Tramadol Hcl 50 Mg Tablet) 25 - 50 mg PO Q4H PRN PRN Reason: Pain Stop: 02/06/21 23:19 Travoprost (Travoprost Z 0.004% Oph Soln 2.5 Ml Btl) 1 drops OPR PM [facility] Stop: 02/06/21 23:19 Last Admin: 01/08/21 07:39 Dose: 37 drops Documented by: (1) Anemia Anemia type: unspecified type Qualified Code(s): D64.9 - Anemia, unspecified
[2021-01-08] MEDS: SODIUM CHLORIDE 0.9% 1000ML 1,000 ML IV SCH (19:43)
[2021-01-08] MEDS: FAMOTIDINE 20 MG TAB PO SCH (20:36)
[2021-01-08] MEDS: INSULIN GLARGINE SOLOSTAR 100 UNITS/ML 3 ML PEN SC SCH (20:37)
[2021-01-08] MEDS: HEPARIN SOD 5,000 UNIT/0.5 ML VIAL SQ SCH (22:16)
[2021-01-09] MEDS: SODIUM CHLORIDE 0.9% 1000ML 1,000 ML IV SCH (05:35)
[2021-01-09] MEDS: HEPARIN SOD 5,000 UNIT/0.5 ML VIAL SQ SCH ×3 (05:36→21:51)
[2021-01-09 06:22] LABS: Iron 48 mcg/dl (35-150); Transferrin 161 mg/dl (200-360); Transferrin Percent Saturation 21 % (15-50)
[2021-01-09 06:23] LABS: Estimated Average Glucose 223 mg/dl; Hemoglobin A1C 9.4 % (4.5-5.6)
[2021-01-09] MEDS: FERROUS SULFATE 325 MG TAB PO SCH (07:57)
[2021-01-09] MEDS: CITALOPRAM 20 MG TAB PO SCH (07:57)
[2021-01-09] MEDS: prednisoLONE acetate 1% OP SUSP 5 ML BTL OP SCH ×2 (07:57→20:41)
[2021-01-09] MEDS: ATORVASTATIN 40 MG TAB PO SCH (07:58)
[2021-01-09] MEDS: ASPIRIN 81 MG ECTAB PO SCH (07:58)
[2021-01-09] MEDS: FOLIC ACID 1 MG TAB PO SCH (07:58)
[2021-01-09] MEDS: CLOPIDOGREL BISULFATE 75 MG TAB PO SCH (07:58)
[2021-01-09] MEDS: INSULIN ASPART 100 UNITS/ML 3 ML PEN SC SCH ×4 (08:00→20:38)
[2021-01-09] MEDS: INSULIN GLARGINE SOLOSTAR 100 UNITS/ML 3 ML PEN SC SCH (08:24)
[2021-01-09 09:18] LABS: BUN Creatinine Ratio 20.8 (10-20); Calcium 8.6 mg/dl (8.5-10.1); Creatinine Clr Calc Pharmacy 21.2 ml/min; Est GFR (African American) 18.9; Est GFR (Non-African American) 16.3; Potassium 4.1 mmol/L (3.5-5.1)
--- NOTE | 2021-01-09 16:38 | Hospitalist Progress Note ---
Date of Service January 09, 2021 Assessment & Plan (1) Physical deconditioning: She is overall physically deconditioned, obese and has multiple comorbidities that are uncontrolled including chronic kidney disease and diabetes. She has complications of diabetes and is on medications that are co ntributing to fall risk issues and she has fallen at home prompting recent hospitalizations. She has multiple bruises on her body is evidence of this. She reports daytime fatigue and somnolence and is groggy today. She likely suffers from either obstructive sleep apnea or obesity hypoventilation syndrome. It is already been recommended that she undergo a sleep study as outpatient. This will not happen quickly, however, and we may be able to exclude the possibility of any nocturnal hypoxia by performing a nocturnal sleep study which we will do overnight this evening. We will also perform an ABG in the morning to ensure no CO2 retention is present that is extreme. Close follow-up with primary care is recommended to optimize underlying comorbidities. This was relayed to her daughter by phone today. (2) Hypotension: Resolved off Coreg, amlodipine and lasix. Continue to hold Coreg and Lasix at this time and restart amlodipine with blood pressure rising into the 170s range systolic. (3) Bradycardia: Heart rate remains in the 50s to 60s range consistently off the Coreg. Avoid beta-blockers. (4) Acute kidney injury superimposed on chronic kidney disease: Creatinine is improved to 2.7 with a baseline of 2.0. This is improved from 3.6 on admission. Nephro following. No further IV fluids at this time. Lasix is being held. (5) T2DM (type 2 diabetes mellitus): Uncontrolled diabetes with complications including peripheral neuropathy. Repeat A1c this morning is 9.4. Glargine was held in light of fasting glucose of 75. She is continued to remain in the low 100s. Will stop glargine altogether and continue loose carb coverage with correction factor. Close outpatient follow-up to achieve an A1c goal of less than 7 will be important. This was discussed with her daughter by phone today. (6) CAD (coronary artery disease): chronic, stable, no chest pain. Cont medical management including ASA, Placix, , Lipitor 80mg daily. BB held in setting of bradycardia as above. (7) Generalized weakness: PT/OT to assess. Likely related to recent hospitalizations and deconditioning related to these. (8) Anemia: chronic, per nephro. Patient is on Procrit. Defer to nephro regarding the need to give this now or wait until after discharge. (9) Plantar ulcer of right foot: Orthotics ordered and wound care cleaned out the wound, cont local wound care and follow with outpatient associate marketing manager. Ulcer does not appear infected. (10) DVT prophylaxis: adding heparin Full Code Dispo-uncertain at this time. Jillian Fofana DO [facility] Hospitalist Admission and Anticipated Discharge Date Admission Date: January 07, 2021 Subjective 75 yo F presented after home health nursing found her to be hypotensive and bradycardic at home. She feels a little more groggy today and reports sleeping all the time. She otherwise denies any pain. She has not gotten out of bed and so does not know if she is lightheaded today but does not feel so. She denies any other issues at this time. She is tolerating food without issue. Review of Systems Review of Systems: All systems reviewed & are unremarkable except as noted in Subjective Physical Exam Physical Exam: CONSTITUTIONAL: obese, vitals as above, generally well- appearing EYES: normal conjunctivae, no scleral icterus ENT: external ear and nose normal, MMM RESPIRATORY: clear to auscultation bilaterally, no crackles, rales or wheezes, normal respiratory effort CARDIOVASCULAR: regular rate and rhythm, S1 and 2 heard without murmurs, gallops or rubs, no JVD, no peripheral edema GASTROINTESTINAL: soft, nontender, nondistended. MUSCULOSKELETAL: strength 5/5 throughout, head is normocephalic and atraumatic SKIN: warm and dry, ecchymosis on left side of body both in lateral side of chest and on lateral left buttock NEUROLOGIC: CN 2-12 grossly intact, no sensory deficit, normal cognition, normal speech, no gross focal deficits. PSYCHIATRIC: alert cooperative and oriented to person, place and time. Results & Data Results & Data ([facility]) Vital Signs (Past 12 Hours) Vital Signs Temp Pulse Pulse Resp BP BP Pulse Ox 01/09/21 16:31 66 01/09/21 15:58 36.6 C 62 18 179/72 H 97 01/09/21 11:16 37.3 C 63 16 150/70 H 96 01/09/21 08:52 54 L 01/09/21 07:20 36.5 C 62 17 164/81 H 97 Laboratory Results [facility] 01/09/21 05:31 Sodium 144 Potassium 4.1 Chloride 111 H Carbon Dioxide 30 BUN 56 H Creatinine 2.70 H D Glucose 58 L Calcium 8.6 Medications Administered Current Inpatient Medications Acetaminophen (Acetaminophen 325 Mg Tab) 650 mg PO Q4H PRN PRN Reason: Pain or Fever Stop: 02/06/21 23:19 Aspirin (Aspirin 81 Mg Ectab) 81 mg PO DAILY [facility] Stop: 02/07/21 08:59 Last Admin: 01/09/21 07:58 Dose: 81 mg Documented by: Atorvastatin Calcium (Atorvastatin 40 Mg Tab) 80 mg PO DAILY [facility] Stop: 02/07/21 08:59 Last Admin: 01/09/21 07:58 Dose: 80 mg Documented by: Atropine Sulfate (Atropine Sulfate 0.1 Mg/Ml 5ml Syr) 0.5 mg IV Q3M PRN PRN Reason: symptomatic bradycardia Stop: 02/06/21 23:19 Citalopram Hydrobromide (Citalopram 20 Mg Tab) 20 mg PO DAILY [facility] Stop: 02/07/21 08:59 Last Admin: 01/09/21 07:57 Dose: 20 mg Documented by: Clopidogrel Bisulfate (Clopidogrel Bisulfate 75 Mg Tab) 75 mg PO DAILY [facility] Stop: 02/07/21 08:59 Last Admin: 01/09/21 07:58 Dose: 75 mg Documented by: Dextrose (Dextrose 50% 50 Ml Syringe) 25 - 50 ml IV UD PRN; Protocol PRN Reason: Hypoglycemia Protocol Stop: 02/06/21 23:19 Famotidine (Famotidine 20 Mg Tab) 20 mg PO HS [facility] Stop: 02/06/21 23:19 Last Admin: 01/08/21 20:36 Dose: 20 mg Documented by: Ferrous Sulfate (Ferrous Sulfate 325 Mg Tab) 325 mg PO DAILY@1200 [facility] Stop: 02/07/21 11:59 Last Admin: 01/09/21 07:57 Dose: 325 mg Documented by: Folic Acid (Folic Acid 1 Mg Tab) 1 mg PO DAILY [facility] Stop: 02/07/21 08:59 Last Admin: 01/09/21 07:58 Dose: 1 mg Documented by: Glucagon (Glucagon For Inj 1 Mg Vial) 1 mg SQ UD PRN; Protocol PRN Reason: Hypoglycemia Protocol Stop: 02/06/21 23:19 Glucose (Glucose 10 Tabs/Tube) 4 - 8 tabs PO UD PRN; Protocol PRN Reason: Hypoglycemia Protocol Stop: 02/06/21 23:19 Glucose (Glucose 40% Gel 15 Gm Tube) 15 - 30 gm PO UD PRN; Protocol PRN Reason: Hypoglycemia Protocol Stop: 02/06/21 23:19 Heparin Sodium (Porcine) (Heparin Sod 5,000 Unit/0.5 Ml Vial) 5,000 units SQ Q8 [facility] Stop: 02/07/21 21:59 Last Admin: 01/09/21 12:21 Dose: 5,000 units Documented by: Promethazine HCl 12.5 mg/ (Sodium Chloride) 50.5 mls @ 202 mls/hr IV Q6H PRN PRN Reason: Nausea And Vomiting Stop: 02/06/21 23:19 Insulin Aspart (Insulin Aspart 100 Units/Ml 3 Ml Pen) 0 units SC ACHS [facility] Stop: 02/06/21 23:19 Last Admin: 01/09/21 12:21 Dose: 3 units Documented by: Insulin Glargine (Insulin Glargine Solostar 100 Units/Ml 3 Ml Pen) 15 units SC BID [facility] Stop: 02/07/21 20:59 Last Admin: 01/09/21 08:24 Dose: Not Given Documented by: Miscellaneous (Brimonidine-Dorzolamide~Order Awaiting Action) 1 ea N/A QS [facility] Stop: 02/06/21 00:00 Last Admin: 01/09/21 15:09 Dose: Not Given Documented by: Miscellaneous (Carbohydrates For Hypoglycemia ) 15 - 30 gm PO UD PRN PRN Reason: Hypoglycemia Protocol Stop: 02/06/21 23:19 Prednisolone Acetate (Prednisolone Acetate 1% Op Susp 5 Ml Btl) 1 drops OP BID [facility] Stop: 02/06/21 23:19 Last Admin: 01/09/21 07:57 Dose: 1 drops Documented by: Tramadol HCl (Tramadol Hcl 50 Mg Tablet) 25 - 50 mg PO Q4H PRN PRN Reason: Pain Stop: 02/06/21 23:19 Travoprost (Travoprost Z 0.004% Oph Soln 2.5 Ml Btl) 1 drops OPR PM [facility] Stop: 02/06/21 23:19 Last Admin: 01/08/21 07:39 Dose: 37 drops Documented by: (1) Anemia Anemia type: unspecified type Qualified Code(s): D64.9 - Anemia, unspecified
[2021-01-09] MEDS ORDERED: amLODIPine BESYLATE 5 MG TAB PO ONE (17:30)
--- NOTE | 2021-01-09 18:49 | Nephrology Progress Note ---
Date of Service January 09, 2021 Assessment & Plan (1) Acute kidney injury superimposed on chronic kidney disease: presenting creatinine 01/07 3.6, up from her baseline of 2. kayexalate was continued on presentation. suspect ischemic atn from lower bp/bradycardia. >>low threshold to evaluate for sleep apnea/ low threshold for abg given tendency to dose off >> pt w/ ongong MS issues past several weeks -- ?dementia?delirium; ? if othe rwork up needed -stopped kayexalate -cont low K diet for now -daily bmp -ok from renal standpoint to d/c candice (2) Bradycardia: ongoing; hypotension improving though (3) Anemia: follows w/ anemia clinic as OP; hgb runnign low 8's >> trend daily cbc, monitor for bleeding -will check iron stores fo fitz> they are adequate -consider inpt epo dose (4) Hypertension: SBP high now>> stopped NS; some lability on presentation Admission and Anticipated Discharge Date Admission Date: January 07, 2021 Subjective seen on rounds at approximately 1400; no c/o but also ? confusion >> tells me bruise on her L hip is from blood draws; no sob, no n/v, no uncontrolled pain; ongoign generalized weakness Review of Systems Review of Systems: All systems reviewed & are unremarkable except as noted in Subjective Physical Exam Constitutional: well developed, well nourished and + morbidly obese; no acute distress Eyes: EOM intact bilaterally ENMT: Ears: no external ear abnormality Nose: no external nose abnormality Mouth: + dry oral mucous membranes Neck: no nuchal rigidity Respiratory: normal respiratory effort Auscultation: lungs clear to auscultation bilaterally and + diminished lung sounds Cardiovascular: Rate/Rhythm: regular rate and regular rhythm Extremities: no edema Gastrointestinal (Abdomen): Inspection/Auscultation: normal bowel sounds Percussion/Palpation: abdomen soft; abdomen nontender and no guarding Musculoskeletal: Extremities: normal strength Skin: no rashes, warm and dry Neurologic: paris, generalized weaknss, no tremor Genitourinary: foelyw / ample urine Results & Data ([facility]) Vital Signs (Past 12 Hours) Vital Signs Temp Pulse Pulse Resp BP BP Pulse Ox 01/09/21 16:31 66 01/09/21 15:58 36.6 C 62 18 179/72 H 97 01/09/21 11:16 37.3 C 63 16 150/70 H 96 01/09/21 08:52 54 L 01/09/21 07:20 36.5 C 62 17 164/81 H 97 Laboratory Results 01/08/21 05:54 01/09/21 05:31 (1) Anemia Anemia type: unspecified type Qualified Code(s): D64.9 - Anemia, unspecified
[2021-01-09] MEDS: FAMOTIDINE 20 MG TAB PO SCH (20:40)
[2021-01-09] MEDS: TRAVOPROST Z 0.004% OPH SOLN 2.5 ML BTL OPR SCH (20:40)
[2021-01-10] MEDS ORDERED: amLODIPine BESYLATE 5 MG TAB PO SCH ×2 (00:05→09:00)
[2021-01-10] MEDS ORDERED: carvediloL 3.125 MG TAB PO ONE (01:30)
--- NOTE | 2021-01-10 01:31 | Communication Note ---
Date of Service: January 10, 2021 Made aware by RN of uncontrolled blood pressure. SBP 150-170s since AM. CR 70s as per RN Patient asymptomatic as per RN. AP Hypertensive urgency Patient admitted for hypotension, bradycardia secondary to high Coreg dosage. Persistently elevated BP despite resumption of amlodipine yesterday afternoon. Hydralazine ineffective for BP control as per outpatient notes. Low-dose Coreg 1 dose now. Defer decision regarding resumption of Coreg Rx to AM provider.
[2021-01-10 06:30] LABS: Base Excess ABG 2.2 mEq/L (-9-1.8); HCO3 ABG 27 mmol/L (19-24); PCO2 ABG 40 mmHg (35-46); PO2 ABG 76 mmHg (80-95); pH ABG 7.44 (7.35-7.45)
[2021-01-10 06:31] LABS: Allen Test Pos (Pos); Hematocrit (blood only) 27.1 % (37-47); Hemoglobin 8.6 g/dL (12.0-16.0); Mean Corpuscular Hemoglobin 29.9 pg (25-34); Mean Corpuscular Hgb Conc 31.7 g/dL (32-36); Mean Corpuscular Volume 94.1 fL (80-100); Mean Platelet Volume 9.9 fL (7.4-10.4); Platelet Count 123 K/uL (130-400); RDW Coefficient of Variation 15.5 % (11.5-14.5); RDW Standard Deviation 53.1 fL (36.4-46.3); Red Blood Count 2.88 M/uL (4.2-5.4)
[2021-01-10] MEDS: HEPARIN SOD 5,000 UNIT/0.5 ML VIAL SQ SCH ×3 (06:32→21:37)
[2021-01-10 06:57] LABS: BUN Creatinine Ratio 24.1 (10-20); Calcium 8.5 mg/dl (8.5-10.1); Creatinine Clr Calc Pharmacy 28.1 ml/min; Est GFR (African American) 26.4; Est GFR (Non-African American) 22.8; Magnesium 2.5 mg/dl (1.8-2.4); Phosphorus 3.1 mg/dl (2.5-4.9)
[2021-01-10] MEDS: INSULIN ASPART 100 UNITS/ML 3 ML PEN SC SCH ×4 (08:23→21:06)
[2021-01-10] MEDS: ATORVASTATIN 40 MG TAB PO SCH (08:24)
[2021-01-10] MEDS: CLOPIDOGREL BISULFATE 75 MG TAB PO SCH (08:24)
[2021-01-10] MEDS: ASPIRIN 81 MG ECTAB PO SCH (08:24)
[2021-01-10] MEDS: prednisoLONE acetate 1% OP SUSP 5 ML BTL OP SCH ×2 (08:24→21:09)
[2021-01-10] MEDS: CITALOPRAM 20 MG TAB PO SCH (08:24)
[2021-01-10] MEDS: FOLIC ACID 1 MG TAB PO SCH (08:24)
[2021-01-10] MEDS ORDERED: cloNIDine HCL 0.1 MG TAB PO ONE (08:54)
[2021-01-10] MEDS ORDERED: ISOSORBIDE MONO EXTENDED REL 30 MG TABCR PO ONE (11:21)
[2021-01-10] MEDS: lisinopril 10 MG TAB PO SCH (12:35)
[2021-01-10] MEDS: FERROUS SULFATE 325 MG TAB PO SCH (12:52)
--- NOTE | 2021-01-10 13:35 | Nephrology Progress Note ---
Date of Service January 10, 2021 Assessment & Plan (1) Acute kidney injury superimposed on chronic kidney disease: presenting creatinine 01/07 3.6, up from her baseline of 2. kayexalate was continued on presentation. suspect ischemic atn from lower bp/bradycardia. back to baseline today -stopped kayexalate - do not d/c on this -cont low K diet for now -daily bmp -bp meds as below -asked to have 01/11 appt in CKD clinic w/ NAVDE[facility] Eubanks moved out 2-3 weeks (2) Bradycardia: ongoing; hypotension improving though (3) Anemia: follows w/ anemia clinic as OP; hgb runnign low 8's >> trend daily cbc, monitor for bleeding -will check iron stores fo fitz> they are adequate -consider inpt epo dose (4) Hypertension: ? if some elevation at recent hospital stays relate to stopping clonidine. still w/ slower HR > will avoid BB for now but watch to introduce ? as OP; has been on labetalol low dose in past. in collaboration w/ Dr Fofana, came up w/ following regimen: -no amlodipine -lisinopril 10 mg daily -lasix 10 mg bid17 po -imdur 30 mg daily Admission and Anticipated Discharge Date Admission Date: January 07, 2021 Subjective feeling better > not tired, rested well; hungry; no sob, no edema. denies voiding issues - sara thinks still has harvey Review of Systems Review of Systems: All systems reviewed & are unremarkable except as noted in Subjective Physical Exam Constitutional: well developed, well nourished and + morbidly obese; no acute distress Eyes: EOM intact bilaterally ENMT: Ears: no external ear abnormality Nose: no external nose abnormality Mouth: + dry oral mucous membranes Neck: no nuchal rigidity Respiratory: normal respiratory effort Auscultation: lungs clear to auscultation bilaterally and + diminished lung sounds Cardiovascular: Rate/Rhythm: regular rate and regular rhythm Extremities: no edema Gastrointestinal (Abdomen): Inspection/Auscultation: normal bowel sounds Percussion/Palpation: abdomen soft; abdomen nontender and no guarding Musculoskeletal: Extremities: normal strength Skin: no rashes, warm and dry Neurologic: paris, fluent speech, no tremor Psychiatric: fluent speech, no tremor, paris; still generalized weakness Results & Data ([facility]) Vital Signs (Past 12 Hours) Vital Signs Temp Pulse Pulse Pulse Resp BP BP 01/10/21 11:20 37.0 C 69 17 154/69 H 01/10/21 07:27 36.7 C 60 18 162/68 H 01/10/21 07:19 63 01/10/21 05:43 58 L 01/10/21 04:14 36.7 C 72 18 166/82 H 01/10/21 01:29 72 177/76 H 01/10/21 01:20 67 Pulse Ox Pulse Ox 01/10/21 11:20 97 01/10/21 07:27 96 01/10/21 07:19 01/10/21 05:43 96 01/10/21 04:14 96 01/10/21 01:29 01/10/21 01:20 94 Laboratory Results 01/10/21 06:17 01/10/21 06:17 (1) Anemia Anemia type: unspecified type Qualified Code(s): D64.9 - Anemia, unspecified
--- NOTE | 2021-01-10 15:07 | Hospitalist Progress Note ---
Date of Service January 10, 2021 Assessment & Plan (1) Physical deconditioning: She is overall physically deconditioned, obese and has multiple comorbidities that are uncontrolled including chronic kidney disease and diabetes. She has complications of diabetes and is on medications that are co ntributing to fall risk issues and she has fallen at home prompting recent hospitalizations. She has multiple bruises on her body is evidence of this. She reports daytime fatigue and somnolence and is groggy today. She likely suffers from either obstructive sleep apnea or obesity hypoventilation syndrome. It is already been recommended that she undergo a sleep study as outpatient. Continue PT OT while inpatient. (2) Hypotension: This is likely a result of her being initially off her clonidine going into [place], having rebound hypertension, and having additional agents tacked onto her regimen to try and decrease her blood pressure. 1 of these agents was Coreg 25 mg p.o. twice daily which caused her significant bradycardia. Of note per record review she used to be on labetalol 200 twice daily. This was given consideration for her discharge hypertension regimen, however, her heart rate is in the 50s to 60s consistently. (3) Bradycardia: Improved from admission where heart rate was in the high 30s. Heart rate remains in the 50s to 60s range consistently off the Coreg. Avoid beta-blockers at this time. (4) Acute kidney injury superimposed on chronic kidney disease: Creatinine is improved to baseline. Marcano catheter was removed and Lasix was reinitiated. Lisinopril was also reinitiated. Nephro and I discussed regimen. This is in line with what she has been on prior to these recent [place] admissions. (5) T2DM (type 2 diabetes mellitus): Uncontrolled diabetes with complications including peripheral neuropathy. Repeat A1c this morning is 9.4. Glargine initially held in light of lower fasti ng blood sugar and then she became uncontrolled. Cont basal bolus insulin and would recommend very close follow-up for close followup and adjustment of her regimen as outpatient. Consider MTM referral (6) CAD (coronary artery disease): chronic, stable, no chest pain. Cont medical management including ASA, Plavix, , Lipitor 80mg daily. BB held in setting of bradycardia as above. (7) Generalized weakness: PT/OT to assess. Likely related to recent hospitalizations and deconditioning related to these. (8) Anemia: chronic, per nephro. Patient is on Procrit. Defer to nephro regarding the need to give this now or wait until after discharge. (9) Plantar ulcer of right foot: Orthotics ordered and wound care cleaned out the wound, cont local wound care and follow with outpatient sailing officer. Ulcer does not appear infected. (10) DVT prophylaxis: adding heparin Full Code Dispo-to home when feeling better and blood pressure is better controlled, likely next 1-2 days. [facility] Admission and Anticipated Discharge Date Admission Date: January 07, 2021 Subjective 75-year-old female presented to the hospital with hypotension and bradycardia. She is recently been hospitalized at [facility] 2 times once on 12/29 through 01/02 and the second time back again on 01/02 through 01/06. On record review it appears that she was on clonidine in early December as well as Lasix 10 mg twice daily and lisinopril 10 mg long-term. She also was on Imdur 30 mg per the cardiac clinic notes. She is currently not on any of these and clonidine is the most concerning with her elevation in blood pressure. We discussed that she feels she is taking clonidine. Her daughter is unaware and is not currently managing her medications with her. As it is Monday morning it cannot be checked with her pharmacy if this is the case that she is being dispensed clonidine. The patient otherwise did not require any nocturnal oxygen on her overnight pulse oximetry study and is not retaining CO2 on her ABG test this morning. She does feel groggy and tired again this morning however. We did discuss the importance of undergoing an outpatient sleep study again with her persistent daytime fatigue as this continues to contribute to her fall risk. She verbalized understanding. She has not gotten out of bed and therefore cannot tell if she is lightheaded today but mostly feels fine. She is tolerating p.o. She is mentating at baseline. She is excited that her kidney function is back to normal and she will get the Marcano catheter out. I discussed case with the contact finger assembler on-call. Review of Systems Review of Systems: All systems reviewed & are unremarkable except as noted in Subjective Physical Exam Physical Exam: CONSTITUTIONAL: obese, vitals as above, generally well- appearing, somnolent EYES: normal conjunctivae, no scleral icterus ENT: external ear and nose normal, MMM RESPIRATORY: clear to auscultation bilaterally, no crackles, rales or wheezes, normal respiratory effort CARDIOVASCULAR: regular rate and rhythm, S1 and 2 heard without murmurs, dobbs ps or rubs, no JVD, no peripheral edema GASTROINTESTINAL: soft, nontender, nondistended. MUSCULOSKELETAL: strength 5/5 throughout, head is normocephalic and atraumatic SKIN: warm and dry, ecchymosis on left side of body both in lateral side of chest and on lateral left buttock NEUROLOGIC: CN 2-12 grossly intact, no sensory deficit, normal cognition, normal speech, no gross focal deficits. PSYCHIATRIC: alert cooperative and oriented to person, place and time. Results & Data Results & Data ([facility]) Vital Signs (Past 12 Hours) Vital Signs Temp Pulse Pulse Pulse Resp BP BP 01/10/21 13:37 36.7 C 69 17 147/67 H 01/10/21 11:20 37.0 C 69 17 154/69 H 01/10/21 07:27 36.7 C 60 18 162/68 H 01/10/21 07:19 63 01/10/21 05:43 58 L 01/10/21 04:14 36.7 C 72 18 166/82 H Pulse Ox Pulse Ox 01/10/21 13:37 95 01/10/21 11:20 97 01/10/21 07:27 96 01/10/21 07:19 01/10/21 05:43 96 01/10/21 04:14 96 Laboratory Results Short CBC 01/10/21 Range/Units 06:17 WBC 4.40 L (4.8-10.8) K/uL Hgb 8.6 L (12.0-16.0) g/dL Hct 27.1 L (37-47) % Plt Count 123 L (130-400) K/uL BMP 01/10/21 06:17 Sodium 143 Potassium 4.0 Chloride 112 H Carbon Dioxide 26 BUN 49 H Creatinine 2.05 H D Glucose 147 H Calcium 8.5 Medications Administered Current Inpatient Medications Acetaminophen (Acetaminophen 325 Mg Tab) 650 mg PO Q4H PRN PRN Reason: Pain or Fever Stop: 02/06/21 23:19 Aspirin (Aspirin 81 Mg Ectab) 81 mg PO DAILY BJORN Stop: 02/07/21 08:59 Last Admin: 01/10/21 08:24 Dose: 81 mg Documented by: Atorvastatin Calcium (Atorvastatin 40 Mg Tab) 80 mg PO DAILY BJORN Stop: 02/07/21 08:59 Last Admin: 01/10/21 08:24 Dose: 80 mg Documented by: Atropine Sulfate (Atropine Sulfate 0.1 Mg/Ml 5ml Syr) 0.5 mg IV Q3M PRN PRN Reason: symptomatic bradycardia Stop: 02/06/21 23:19 Citalopram Hydrobromide (Citalopram 20 Mg Tab) 20 mg PO DAILY BJORN Stop: 02/07/21 08:59 Last Admin: 01/10/21 08:24 Dose: 20 mg Documented by: Clopidogrel Bisulfate (Clopidogrel Bisulfate 75 Mg Tab) 75 mg PO DAILY BJORN Stop: 02/07/21 08:59 Last Admin: 01/10/21 08:24 Dose: 75 mg Documented by: Dextrose (Dextrose 50% 50 Ml Syringe) 25 - 50 ml IV UD PRN; Protocol PRN Reason: Hypoglycemia Protocol Stop: 02/06/21 23:19 Famotidine (Famotidine 20 Mg Tab) 20 mg PO HS BJORN Stop: 02/06/21 23:19 Last Admin: 01/09/21 20:40 Dose: 20 mg Documented by: Ferrous Sulfate (Ferrous Sulfate 325 Mg Tab) 325 mg PO DAILY@1200 BJORN Stop: 02/07/21 11:59 Last Admin: 01/10/21 12:52 Dose: 325 mg Documented by: Folic Acid (Folic Acid 1 Mg Tab) 1 mg PO DAILY BJORN Stop: 02/07/21 08:59 Last Admin: 01/10/21 08:24 Dose: 1 mg Documented by: Furosemide (Furosemide 20 Mg Tab) 10 mg PO BID17 BJORN Stop: 02/09/21 16:59 Glucagon (Glucagon For Inj 1 Mg Vial) 1 mg SQ UD PRN; Protocol PRN Reason: Hypoglycemia Protocol Stop: 02/06/21 23:19 Glucose (Glucose 10 Tabs/Tube) 4 - 8 tabs PO UD PRN; Protocol PRN Reason: Hypoglycemia Protocol Stop: 02/06/21 23:19 Glucose (Glucose 40% Gel 15 Gm Tube) 15 - 30 gm PO UD PRN; Protocol PRN Reason: Hypoglycemia Protocol Stop: 02/06/21 23:19 Heparin Sodium (Porcine) (Heparin Sod 5,000 Unit/0.5 Ml Vial) 5,000 units SQ Q8 BJORN Stop: 02/07/21 21:59 Last Admin: 01/10/21 12:52 Dose: 5,000 units Documented by: Insulin Aspart (Insulin Aspart 100 Units/Ml 3 Ml Pen) 0 units SC ACHS [facility] Stop: 02/06/21 23:19 Last Admin: 01/10/21 12:33 Dose: 8 units Documented by: Isosorbide Mononitrate (Isosorbide [place] Extended Rel 30 Mg Tabcr) 30 mg PO QAM [facility] Stop: 02/10/21 08:59 Lisinopril (Lisinopril 10 Mg Tab) 10 mg PO QAM [facility] Stop: 02/09/21 11:14 Last Admin: 01/10/21 12:35 Dose: 10 mg Documented by: Miscellaneous (Brimonidine-Dorzolamide~Order Awaiting Action) 1 ea N/A QS [facility] Stop: 02/06/21 00:00 Last Admin: 01/10/21 07:44 Dose: Not Given Documented by: Miscellaneous (Carbohydrates For Hypoglycemia ) 15 - 30 gm PO UD PRN PRN Reason: Hypoglycemia Protocol Stop: 02/06/21 23:19 Prednisolone Acetate (Prednisolone Acetate 1% Op Susp 5 Ml Btl) 1 drops OP BID BJORN Stop: 02/06/21 23:19 Last Admin: 01/10/21 08:24 Dose: 1 drops Documented by: Tramadol HCl (Tramadol Hcl 50 Mg Tablet) 25 - 50 mg PO Q4H PRN PRN Reason: Pain Stop: 02/06/21 23:19 Travoprost (Travoprost Z 0.004% Oph Soln 2.5 Ml Btl) 1 drops OPR PM BJORN Stop: 02/06/21 23:19 Last Admin: 01/09/21 20:40 Dose: 1 drops Documented by: Vitamin D (Cholecalciferol 1,000 Units 25 Mcg Tab) 1,000 units PO DAILY [facility] Stop: 02/10/21 08:59 (1) Anemia Anemia type: unspecified type Qualified Code(s): D64.9 - Anemia, unspecified
[2021-01-10] MEDS: FUROSEMIDE 20 MG TAB PO SCH (17:06)
[2021-01-10] MEDS ORDERED: INSULIN GLARGINE SOLOSTAR 100 UNITS/ML 3 ML PEN SC SCH (21:00)
[2021-01-10] MEDS: TRAVOPROST Z 0.004% OPH SOLN 2.5 ML BTL OPR SCH (21:09)
[2021-01-10] MEDS: FAMOTIDINE 20 MG TAB PO SCH (21:37)
[2021-01-11] MEDS: HEPARIN SOD 5,000 UNIT/0.5 ML VIAL SQ SCH ×2 (05:41→16:21)
[2021-01-11] MEDS: lisinopril 10 MG TAB PO SCH (08:24)
[2021-01-11] MEDS: INSULIN ASPART 100 UNITS/ML 3 ML PEN SC SCH ×3 (08:45→17:53)
[2021-01-11] MEDS: FUROSEMIDE 20 MG TAB PO SCH ×2 (08:58→18:01)
[2021-01-11] MEDS ORDERED: ISOSORBIDE MONO EXTENDED REL 30 MG TABCR PO SCH (09:00)
[2021-01-11] MEDS ORDERED: CHOLECALCIFEROL 1,000 UNITS 25 MCG TAB PO SCH (09:00)
[2021-01-11] MEDS: CLOPIDOGREL BISULFATE 75 MG TAB PO SCH (10:04)
[2021-01-11] MEDS: ATORVASTATIN 40 MG TAB PO SCH (10:05)
[2021-01-11] MEDS: ASPIRIN 81 MG ECTAB PO SCH (10:05)
[2021-01-11] MEDS: FOLIC ACID 1 MG TAB PO SCH (10:05)
[2021-01-11] MEDS: prednisoLONE acetate 1% OP SUSP 5 ML BTL OP SCH (10:05)
[2021-01-11] MEDS: CITALOPRAM 20 MG TAB PO SCH (10:05)
[2021-01-11] MEDS: FERROUS SULFATE 325 MG TAB PO SCH (14:09)
[2021-01-11 14:53] LABS: BUN Creatinine Ratio 23.2 (10-20); Calcium 9.1 mg/dl (8.5-10.1); Creatinine Clr Calc Pharmacy 28.7 ml/min; Est GFR (African American) 27.1; Est GFR (Non-African American) 23.3; Potassium 4.5 mmol/L (3.5-5.1)
[2021-01-11] MEDS ORDERED: lisinopril 10 MG TAB PO ONE (16:30)
[2021-01-11] MEDS ORDERED: lisinopril 10 MG TAB PO SCH (16:45)
[2021-01-12] MEDS ORDERED: lisinopril 10 MG TAB PO SCH (09:00)
--- NOTE | 2021-01-18 17:39 | Discharge Summary ---
Date of Service January 18, 2021 Admission HPI Per Admitting Provider This is a 75-year-old female who has significant past medical history of uncontrolled T2DM, CAD, HTN, HLD, hyperparathyroidism, CKD stage IV, PVD, GERD, exudative age-related macular degeneration, anemia of chronic disease, depression, thrombocytopenia, gait abnormality who presents to ED at the referral of home health nurse secondary to hypotension and bradycardia. Of significance patient was recently hospitalized at [facility] secondary to acute on chronic CKD, hyperkalemia, auditory and visual hallucinations and hypertension. She was then transition to swing bed for PT OT and was discharged to home yesterday. She had been set up with [facility]. During her hospital stay she did have adjustments to blood pressure medications including discontinuation of lisinopril and the addition of amlodipine and Coreg. Her renal function on discharge was 3.0. At home today when being visited by home health nurse she was found to be lightheaded and dizzy with ambulation as long as weak. She was hypotensive and bradycardic and therefore referred to ED. Per ED physician BP at home was reportedly 62/33. In ED she had 1 L of IV fluid administered. Heart rates were in the mid 40s with sinus bradycardia and first-degree AV block. Blood pressure upon my evaluation was 115/44. Currently she feels much improved when is lying in bed. She denies any current lightheadedness, dizziness, fever, chills, sweats, chest pain, shortness of breath, nausea, vomiting, diarrhea, change in her bowel or urinary habits. Admission Exam Per Admitting Provider Constitutional: WD/WN, chronically ill-appearing female, pale, vitals as above, NAD, lying in bed, pleasant, conversing easily Head: Normocephalic, Atraumatic Eyes: PERRL, conjunctivae normal, anicteric sclerae ENMT: external ear and nose normal, oropharynx normal Neck: trachea midline, no thyromegaly normal visual inspection Respiratory: normal respiratory effort, lungs clear to auscultation, no wheeze, rales, rhonchi. Normal insp/exp effort, no accessory muscle use Cardiovascular: Bradycardic rate, regular rhythm, no murmur, bilateral venous stasis changes, no edema Vessels: no JVD or carotid bruit Chest: normal inspection of chest Abdomen: normal bowel sounds, soft, nontender, no hepatosplenomegaly Musculoskeletal: no cyanosis or clubbing, extremities motor strength 5/5 Skin: no rashes, warm and dry normal turgor, plantar ulcer to base of right great toe with with thickened crust, no surrounding erythema Neurologic: PERRL, EOMI, accommodation nl, no face palsy, no dysarthria CN's II-XI intact bilaterally and moves all extremities Psychiatric: A+Ox3, euthymic affect Lymphatic: no cervical or axillary lymphadenopathy : deferred Principal Diagnosis Physical deconditioning Hypotension Discharge Exam General: A&Ox3 HENT: NCAT, MMM, EOMI Eyes: PERRLA Neck: Supple, normal range of motion CVS: normal rate and rhythm Resp: b/l decreased breath sounds secondary to body habitus Abdomen: Soft, nondistended nontender Extremities: No c/c/e Neuro: face symmetric, strength grossly equal, no focal deficit Skin: warm and dry, no rashes/lesions/errythema MSK: normal ROM, no joint swelling/erythema Discharge Data Allergies Allergy/AdvReac Type Severity Reaction Status Date / Time No Known Allergies Allergy Verified 01/07/21 17:29 Consultations 01/07/21 19:54 ED Decision to Admit Stat 01/07/21 23:20 Consult Case Management - Discharge Planning Routine 01/08/21 07:04 Consult Nephrology Routine Ordered Studies 01/08/21 08:30 US renal/blad retro comp Routine Diabetes Follow up Diabetes Follow-up Needed for HgbA1c >9% Hospital Course (1) Physical deconditioning: multifactorial given her underlying medical comorbidities. The day of discharge patient was awake, alert and oriented. Did not have any major complaints. Patient was hemodynamically stable. Patient was discharged in stable condition. Patient will need to undergo sleep study as an outpatient. (2) Hypotension: Prior to discharge her antihypertensive regimen was changed. hypotension did resolve. Patient was discharged on lisinopril, Lasix and immature. Amlodipine was discontinued at discharge. . (3) Bradycardia: Given her bradycardia, carvedilol was discontinued at discharge. Please continue to assess for continuation of bradycardia. (4) Acute kidney injury superimposed on chronic kidney disease: Nephrology was on board. Lisinopril and Lasix were restarted Prior to discharge. (5) T2DM (type 2 diabetes mellitus): Uncontrolled diabetes with complications including peripheral neuropathy. Recommend to follow blood glucose levels daily for further change in the regimen. (6) CAD (coronary artery disease): chronic, stable, no chest pain. Cont medical management including ASA, Plavix, , Lipitor 80mg daily. (7) Generalized weakness: PT/OT to assess. Likely related to recent hospitalizations and decond itioning related to these. (8) Anemia: chronic, per nephro. Patient is on Procrit. Defer to nephro regarding the need to give this now or wait until after discharge. (9) Plantar ulcer of right foot: Orthotics ordered and wound care cleaned out the wound, cont local wound care and follow with outpatient automatic tire tester. Ulcer does not appear infected. Total Time Total Time Spent Total Time Spent (In Minutes): 35 Discharge Plan Discharge Items Patient Disposition: Home - Self-Care Reason For Visit: BRADYCARDIA LOW BP Activity: Resume your previous activity Non-emergency contact: Primary Care Provider Call non-emergency contact if: your symptoms worsen Follow-up/Referrals: Corry Vincent MD [Outside Practitioners] - (Date & Time 01/18/2021 4:00 PM Provider Corry Vincent MD Department [facility] ) Diet: Carb Consistent or DM2 Addtl Attending Provider Instructions: Start taking Lasix 10 mg twice daily. Lisinopril 20 mg daily. Imdur 30 mg daily Stop taking carvedilol and amlodipine. Start taking Lantus 15 units at bedtime daily. Monitor your blood glucose levels daily until you see your primary care physician for further adjustment of diabetic regimen. Pending Studies at Discharge: No Stand-Alone Forms: [facility] Medications and DC Order Prescriptions: New isosorbide mononitrate 30 mg Tablet Extended Release 24 Hr 30 mg PO QAM Qty: 30 RF: 0 lisinopril 10 mg Tablet 20 mg PO QAM Qty: 60 RF: 0 furosemide 20 mg Tablet 10 mg PO BID17 Qty: 60 RF: 0 Lantus Solostar U-100 Insulin 100 unit/mL (3 mL) Insulin Pen 15 unit SC HS Qty: 10 RF: 0 Continued glimepiride 4 mg Tablet 4 mg PO QAM RF: 0 sodium polystyrene sulfonate Powder 15 g PO DAILY RF: 0 Retacrit 10,000 unit/mL Solution 10,000 unit subcut .Q14 DAYS RF: 0 polyethylene glycol 3350 17 gram Powder In Packet 17 g PO DAILY RF: 0 famotidine 20 mg Tablet 20 mg PO HS RF: 0 atorvastatin 80 mg tablet 80 mg PO DAILY RF: 0 clopidogrel 75 mg Tablet 75 mg PO DAILY RF: 0 aspirin 81 mg Tablet,Delayed Release (Dr/Ec) 81 mg PO DAILY RF: 0 citalopram 20 mg Tablet 20 mg PO DAILY RF: 0 prednisolone acetate 1 % Drops,Suspension 1 drp OPL BID RF: 0 ferrous sulfate [FeroSul] 325 mg (65 mg iron) Tablet 325 mg PO DAILY@1200 RF: 0 folic acid 1 mg Tablet 1 mg PO DAILY RF: 0 cholecalciferol (vitamin D3) 25 mcg (1,000 unit) Capsule 25 mcg PO DAILY RF: 0 brimonidine-dorzolamide (PF) 0.15-2 % Drops 1 drp ophthalmic (eye) BID RF: 0 travoprost [Travatan Z] 0.004 % Drops 1 drp OPR PM RF: 0 Discontinued carvedilol 25 mg Tablet 25 mg PO BIDM RF: 0 amlodipine 10 mg Tablet 10 mg PO DAILY RF: 0 furosemide 40 mg Tablet 40 mg PO DAILY RF: 0 Discharge Orders: Discharge Order (Routine); Ordered 01/11/21 Ordered By: Letitia St/Other Patient Handouts: Controlling High Blood Pressure, Low-Salt Choices, Exercise for a Healthier Heart, High Blood Sugar (Hyperglycemia), Hypoglycemia (Low Blood Sugar), Managing Type 2 Diabetes, Wound Care, High Blood Pressure and Kidney Disease, Hypertension Dc Admission Data Admit Date/Time: 01/07/21 20:42 Attending Provider: Letitia Moreira Admit Provider: Jacoby Riddle Primary Care Provider: PCP,NO Other Providers: Kalani Rodrigues Other Interventions: Discharge Summary Assessment (RN) Last Done: 01/11/21 16:38
== END 2021-01-11 18:55 | disposition home or self-care (01) | DRG 309 ==
LOC: ED 16:30 → 2S 20:42 → SUATTDRO 20:42 → 2S 22:06 → 3W 01-10 14:45